=== PATIENT | male | born 1935 | race Caucasian/White ===

== ENCOUNTER 2017-06-27 12:07 | Emergency (ER) | payer MEDICARE, BC ==
[~2017-06-27] VITALS: Ht 198.1 cm; Wt 93.9 kg
[~2017-06-27 12:07] MED LIST: AMOXICILLIN/POTASSIU; ASPIRIN325 PO; CRESTOR20 MG PO; FAMOTIDINE PO; LISINOPRIL20 MG PO; LISINOPRIL40 MG PO; LOPRESSOR25 PO; PLAVIX 75 MG TA75 MG PO; PLAVIX PO
[2017-06-27] MEDS ORDERED: FLOMAX0.4 MG PO (12:33)
[2017-06-27] MEDS ORDERED: FINASTERIDE5 MG PO (12:33)
[2017-06-27] MEDS ORDERED: CIALIS5 MG PO (12:34)
[2017-06-27] MEDS ORDERED: ZETIA10 MG PO (12:35)
[2017-06-27] MEDS ORDERED: ALLERGY RELIEF25 MG PO (12:36)
[2017-06-27] MEDS ORDERED: NORVASC5 MG PO (12:36)
[2017-06-27] MEDS ORDERED: LIPITOR10 MG PO (12:36)
[2017-06-27] MEDS ORDERED: CHLORTABS4 MG PO (12:37)
[2017-06-27] MEDS ORDERED: MEN'S DAILY FO1 EAC1 PO (12:38)
[2017-06-27] MEDS ORDERED: CALCIUM 600 +1 EA11 PO (12:38)
[2017-06-27] MEDS ORDERED: FISH OIL 1,001000 M2 PO (12:39)
[2017-06-27] MEDS ORDERED: KRILL OIL 3001 EACH PO (12:39)
[2017-06-27] MEDS ORDERED: VITAMINC500 PO (12:40)
[2017-06-27] MEDS ORDERED: MAG-OXIDE400 MG PO (12:40)
[2017-06-27] MEDS ORDERED: GLUCOSAMINE CH1 EAC2 PO (12:41)
[2017-06-27] MEDS ORDERED: POTASSIUM GLUC500 MG PO (12:41)
[2017-06-27 13:26] LABS: ABSOLUTE EOSINOPHILS 0.1 thou/uL (0.0-0.7); ABSOLUTE MONOCYTES 0.4 thou/uL (0.0-1.2); ABSOLUTE NEUTROPHILS 3.8 thou/uL (1.6-8.1); BASOPHILS 0.6 %; EOSINOPHILS 1.5 %; MCH 29.5 pg (26.0-34.0); MCHC 33.4 g/dL (28.0-37.0); MCV 88.3 fL (80.0-100.0); MPV 10.3 fl. (7.2-11.1); NUCLEATED RBCS 0 /100WBC; PLATELET COUNT* 195 thou/uL (150-400); POLYS 59.9 %; RBC 4.76 mil/uL (4.50-6.00); WBC 6.4 thou/uL (4.0-11.0)
[2017-06-27 13:30] LABS: ANION GAP 9 mmol/L (7-16); BUN 22 mg/dL (7-18); CALCIUM 9.7 mg/dL (8.5-10.1); CHLORIDE 106 mmol/L (98-107); CO2 28 mmol/L (21-32); CREATININE 1.4 mg/dL (0.6-1.3); GLUCOSE 184 mg/dL (70-99); POTASSIUM 3.8 mmol/L (3.5-5.1); SODIUM 143 mmol/L (136-145)
[2017-06-27 13:36] LABS: ALBUMIN 3.7 g/dL (3.4-5.0); ALKALINE PHOSPHATASE 48 U/L (46-116); SGOT 19 U/L (15-37); SGPT 31 U/L (30-65); TOTAL BILIRUBIN 0.9 mg/dL (<0.1-1.0); TOTAL PROTEIN 6.6 g/dL (6.4-8.2); TROPONIN-I LEVEL <0.06 ng/mL (<0.06)
[2017-06-27 14:00] LABS: URINE BILIRUBIN NEGATIVE (Negative); URINE BLOOD NEGATIVE (Negative); URINE CLARITY CLEAR; URINE COLOR YELLOW; URINE GLUCOSE-RANDOM NEGATIVE (Negative); URINE KETONES NEGATIVE (Negative); URINE LEUKOCYTES-REFLEX NEGATIVE (Negative); URINE NITRITE-REFLEX NEGATIVE (Negative); URINE PROTEIN NEGATIVE (Negative); URINE UROBILINOGEN 0.2 E.U./dl (0.2-1.0)
[2017-06-27 15:24] VITALS: BP 107/68
--- NOTE | 2017-06-27 16:42 | EKG ---
[place] [address] ELECTROCARDIOGRAM REPORT Name: TIM MARTINEZ [id number] Admission: 06/27/17 Attend Phys: Discharge: 06/27/17 Date of : 35 Report #: [id number] THIS REPORT FOR: //name// [facility] ED Test Date: 2017-06-27 Test Time: 12:19:26 Pat Name: TIM MARTINEZ Department: Room: Gender: M [employer] Supervisor: JOSE : 1935 Requested By: Lea Garcia Order Number: [id number] MD: Terell Walton Measurements Intervals [place] Rate: 73 P: 8 OK: 212 QRS: -25 QRSD: 114 T: 31 QT: 418 QTc: 461 Interpretive Statements Sinus rhythm Premature ventricular complexes Sinus pause Borderline prolonged OK interval Incomplete RBBB and LAFB Low voltage, precordial leads Abnormal R-wave progression, late transition Compared to ECG 08/01/2009 07:57:25 Sinus pause or arrest now present Left anterior fascicular block now present Incomplete right bundle-branch block now present Low QRS voltage now present Electronically Signed On 06-27-2017 16:42:24 CDT by Terell Walton [email or web address] <ELECTRONICALLY SIGNED> By: Terell Walton MD, FACC 06/27/17 1642 18 18 Terell Walton MD, [facility] /EPI
== END 2017-06-27 15:25 | disposition home or self-care (01) ==
LOC: M.ERS 12:07
PROVIDERS: Personal Emergency Response Attendant
DX: R53.1 Weakness (principal); I10 Essential (primary) hypertension; Z90.89 Acquired absence of other organs; Z88.8 Allergy status to other drugs, medicaments and biological substances